=== PATIENT | female | born 1940 | race Hispanic/Latino ===

== ENCOUNTER 2021-07-30 11:36 | Observation (INO) | payer MEDICARE ==
[~2021-07-30] VITALS: Ht 154.9 cm; Wt 81.6 kg
[2021-07-30] MEDS ORDERED: SODIUM CHLORIDE 0.9% 1000ML 1,000 ML IV STA (11:46)
[2021-07-30 12:06] LABS: BASOPHILS % 0.2 % (0.0-1.0); EOSINOPHILS # (AUTO) 0.1 (0.0-0.4); EOSINOPHILS % 1.4 % (0.0-6.0); HEMATOCRIT 40.6 % (34.2-44.1); LYMPHOCYTES # (AUTO) 1.9 (1.0-3.2); LYMPHOCYTES % 23.6 % (18.0-39.1); MEAN CORPUSCULAR HEMOGLOBIN 29.6 pg (28-32); MEAN CORPUSCULAR VOLUME 92.5 fL (81-99); MONOCYTES # (AUTO) 0.4 (0.2-0.8); MONOCYTES % 5.5 % (4.4-11.3); NEUTROPHILS # (AUTO) 5.6 (2.1-6.9); NEUTROPHILS % 69.1 % (38.7-80.0); PLATELET COUNT 250 x10e3/uL (140-360); RED BLOOD COUNT 4.39 x10e6/uL (3.6-5.1); RED CELL DISTRIBUTION WIDTH 13.2 % (11.7-14.4)
[2021-07-30 12:12] LABS: INR 0.92; PARTIAL THROMBOPLASTIN TIME 29.3 seconds (23.8-35.5); PROTHROMBIN TIME 13.2 seconds (11.9-14.5)
[2021-07-30 12:24] LABS: ALBUMIN 4.4 g/dL (3.5-5.0); ALBUMIN/GLOBULIN RATIO 1.1 (0.8-2.0); ANION GAP 18.5 mmol/L (8-16); CALCIUM 9.9 mg/dL (8.4-10.2); CREATININE, SERUM 1.02 mg/dL (0.57-1.11); POTASSIUM 4.5 mmol/L (3.5-5.1)
[2021-07-30] MEDS ORDERED: ONDANSETRON HCL INJ 2MG/ML 2ML 2 MG/ML VIAL IV ONE (12:30)
[2021-07-30] MEDS ORDERED: SUCCINYLCHOLINE CHLORIDE 20 MG/ML 10ML VIAL ONE (13:12)
[2021-07-30] MEDS ORDERED: ONDANSETRON HCL INJ 2MG/ML 2ML 2 MG/ML VIAL ONE (13:12)
[2021-07-30] MEDS ORDERED: LIDOCAINE HCL 2% LOCAL INJ 5 ML SDV VIAL INJ ONE (13:12)
[2021-07-30] MEDS ORDERED: SEVOFLURANE INHAL SOLN 250 ML PEN BTL ONE (13:12)
[2021-07-30] MEDS ORDERED: DEXAMETHASONE SOD PHOS INJ 4 MG/ML SDV ONE (13:12)
[2021-07-30] MEDS ORDERED: LABETALOL HCL 5 MG/ML 20ML VIAL ONE (13:12)
[2021-07-30] MEDS ORDERED: PROPOFOL IV EMULSION 10 MG/ML 20 ML VIAL ONE (13:12)
[2021-07-30] MEDS ORDERED: ONDANSETRON HCL INJ 2MG/ML 2ML 2 MG/ML VIAL IV PRN (13:15)
[2021-07-30 14:25] VITALS: BP 167/83
[2021-07-30] MEDS ORDERED: IOPAMIDOL 370 MG/ML 200 ML INFUS..BTL INJ ONE (14:30)
[2021-07-30] MEDS ORDERED: SODIUM CHLORIDE 0.9% 50ML 50 ML ONE (14:30)
[2021-07-30] MEDS ORDERED: ATORVASTATIN CA20 MG PO (17:03)
[2021-07-30] MEDS ORDERED: ginko biloba PO (17:03)
[2021-07-30] MEDS ORDERED: JARDIANCE25 MG PO (17:03)
[2021-07-30] MEDS ORDERED: NEXIUM40 MG PO (17:03)
[2021-07-30] MEDS ORDERED: VITAMIN D32400 UNIT/ PO (17:03)
[2021-07-30] MEDS ORDERED: METFORMIN HCL500 M1 PO (17:03)
[2021-07-30] MEDS ORDERED: GLIMEPIRIDE2 MG PO (17:03)
[2021-07-30] MEDS ORDERED: ASPIRIN EC81 MG PO (17:03)
[2021-07-30] MEDS ORDERED: NEURONTIN300 MG PO (17:03)
[2021-07-30] MEDS ORDERED: LOSARTAN POTASS25 MG PO (17:03)
[2021-07-30] MEDS ORDERED: CITALOPRAM HBR20 MG PO (17:03)
[2021-07-30] MEDS: SODIUM CHLORIDE 0.9% 1000ML 1,000 ML IV SCH ×2 (17:13→22:40)
[2021-07-30 20:00] VITALS: BP 136/64
[2021-07-30] MEDS: GABAPENTIN 300 MG CAP PO SCH (20:21)
[2021-07-30] MEDS ORDERED: ATORVASTATIN 20 MG TAB PO SCH (21:00)
[2021-07-30 22:51] LABS: CREATINE KINASE MB 7.1 ng/mL (0-5.0)
[2021-07-31 00:48] VITALS: BP 121/64
[2021-07-31 04:00] VITALS: BP 112/61
[2021-07-31 05:23] LABS: BASOPHILS % 0.1 % (0.0-1.0); HEMATOCRIT 37.4 % (34.2-44.1); HEMOGLOBIN 11.7 g/dL (12.0-16.0); LYMPHOCYTES # (AUTO) 1.5 (1.0-3.2); LYMPHOCYTES % 21.1 % (18.0-39.1); MEAN CORPUSCULAR HEMOGLOBIN 29.5 pg (28-32); MEAN CORPUSCULAR HGB CONC 31.3 g/dL (31-35); MEAN CORPUSCULAR VOLUME 94.2 fL (81-99); MONOCYTES # (AUTO) 0.3 (0.2-0.8); MONOCYTES % 3.9 % (4.4-11.3); NEUTROPHILS # (AUTO) 5.4 (2.1-6.9); NEUTROPHILS % 74.6 % (38.7-80.0); PLATELET COUNT 235 x10e3/uL (140-360); RED BLOOD COUNT 3.97 x10e6/uL (3.6-5.1); RED CELL DISTRIBUTION WIDTH 13.2 % (11.7-14.4)
[2021-07-31 05:48] LABS: ALBUMIN 3.7 g/dL (3.5-5.0); ALBUMIN/GLOBULIN RATIO 1.1 (0.8-2.0); ANION GAP 17.3 mmol/L (8-16); CALCIUM 9.3 mg/dL (8.4-10.2); CREATININE, SERUM 0.94 mg/dL (0.57-1.11); POTASSIUM 4.3 mmol/L (3.5-5.1)
[2021-07-31 05:55] LABS: CREATINE KINASE MB 8.8 ng/mL (0-5.0)
[2021-07-31 08:08] VITALS: BP 123/71
[2021-07-31] MEDS: GABAPENTIN 300 MG CAP PO SCH ×2 (08:09→14:46)
[2021-07-31] MEDS ORDERED: CITALOPRAM HYDROBROMIDE 20 MG TAB PO SCH (09:00)
[2021-07-31] MEDS ORDERED: METFORMIN HCL 500 MG TAB CR PO SCH (09:00)
[2021-07-31] MEDS ORDERED: GLIMEPIRIDE 2 MG TAB PO SCH (09:00)
[2021-07-31] MEDS ORDERED: PANTOPRAZOLE SOD 40 MG TABEC PO SCH (09:00)
[2021-07-31] MEDS ORDERED: LOSARTAN POTASSIUM 25 MG TAB PO SCH (09:00)
[2021-07-31] MEDS ORDERED: ASPIRIN 81 MG ENTERIC COATED PO SCH (09:00)
[2021-07-31] MEDS ORDERED: CHOLECALCIFEROL 1,000 UNIT TAB PO SCH (09:00)
[2021-07-31 09:16] VITALS: BP 123/71
[2021-07-31 11:03] LABS: CHOL/HDL RATIO 3.4 (3.0-3.6)
[2021-07-31 12:00] VITALS: BP 123/64
[2021-07-31 14:04] LABS: CREATINE KINASE MB 8.9 ng/mL (0-5.0)
[2021-07-31] MEDS ORDERED: PREVACID30 MG PO (16:39)
[2021-07-31] MEDS ORDERED: PREVACID30 MG (17:10)
== END 2021-07-31 18:00 | disposition home or self-care (01) ==
LOC: ER 11:42 → ERHOLD 13:12 → MED/SURG3 14:40
PROVIDERS: ADMIT Internal Medicine; ATTEND Internal Medicine
DX: T18.128A Food in esophagus causing other injury, initial encounter (principal); K22.2 Esophageal obstruction; Z20.822 Contact with and (suspected) exposure to COVID-19; K44.9 Diaphragmatic hernia without obstruction or gangrene; Z79.82 Long term (current) use of aspirin; Z79.4 Long term (current) use of insulin; Z79.899 Other long term (current) drug therapy; E11.9 Type 2 diabetes mellitus without complications; I10 Essential (primary) hypertension
CPT/HCPCS: 36415 ×2; 43239; 43247; 70491; 71045; 71046; 80053 ×2; 80061; 82550 ×2; 82553 ×2; 82948 ×2; 83036; 83690; 83735; 84484 ×2; 85025 ×2; 85610; 85730; 88305; 88312; 88342; 93005; 97161; 99284; C9113 ×2; G0378 ×2; J0330; J1100; J2001; J2405; J2704; J3490; J7030; Q9967; S0164; U0002

== ENCOUNTER → 2021-08-04 | Day surgery (SDC) | payer MEDICARE ==
[~2021-08-04] MED LIST: ASPIRIN EC81 MG PO; ATORVASTATIN CA20 MG PO; CITALOPRAM HBR20 MG PO; FENTANYL CITRATE/PF 100MCG/2 ML INJ ONE; GLIMEPIRIDE2 MG PO; JARDIANCE25 MG PO; LIDOCAINE HCL 2% LOCAL INJ 5 ML SDV VIAL INJ ONE; LOSARTAN POTASS25 MG PO; METFORMIN HCL500 M1 PO; METOCLOPRAMIDE HCL 10 MG/2ML VIAL ONE; NEURONTIN300 MG PO; NEXIUM40 MG PO; PREVACID30 MG; PREVACID30 MG PO; VITAMIN D32400 UNIT/ PO; ginko biloba PO
[2021-08-04 16:30] VITALS: BP 125/73
== END | disposition home or self-care (01) ==
LOC: ENDO 12:24
PROVIDERS: ATTEND Internal Medicine Gastroenterology
DX: K22.2 Esophageal obstruction (principal); K29.70 Gastritis, unspecified, without bleeding; K21.9 Gastro-esophageal reflux disease without esophagitis; K44.9 Diaphragmatic hernia without obstruction or gangrene; E11.9 Type 2 diabetes mellitus without complications; I11.0 Hypertensive heart disease with heart failure; I50.9 Heart failure, unspecified; R00.1 Bradycardia, unspecified; Z88.1 Allergy status to other antibiotic agents; Z88.2 Allergy status to sulfonamides; Z79.84 Long term (current) use of oral hypoglycemic drugs; Z79.899 Other long term (current) drug therapy
CPT/HCPCS: 36415; 43239; 43450; 82948; J2001; J2765; J3010